=== PATIENT | male | born 1945 | race Caucasian/White ===

== ENCOUNTER 2016-05-26 13:53 | Emergency (ER) | payer OTHER ==
--- NOTE | 2016-05-26 13:57 | EDPHY ---
H & P Time Seen by Provider: 05/26/16 13:56 HPI/ROS: CHIEF COMPLAINT: Nausea and vomiting for 1 week HISTORY OF PRESENT ILLNESS: 71-year-old man has a history of depression anxiety on Depakote and also has ulcerative colitis. Please add worse nausea with vomiting every day for the last week decreased oral intake. Associated with some epigastric pain and noticed a lump just below his sternum today. Pain does not radiate. Symptoms worse with oral intake. Not associated with diarrhea although he is having bowel movements. No fever or chills. No hematemesis or coffee-ground emesis. REVIEW OF SYSTEMS: Eye: no change in vision ENT: no sore throat Cardiac: no chest pain or syncope Pulmonary: no cough or SOB Abdomen: HPI Musculoskeletal: no back pain Skin: no rash Neuro: no headache Constitutional: no fever : no urinary symptoms A comprehensive 10 point review of systems is otherwise negative aside from elements mentioned in the history of present illness. PAST MEDICAL HISTORY: History and physical dated 06/14/2010 personally reviewed by myself. Includes DVT and ulcerative colitis. GERD. Deu-qubrdcy-aqeycjtuj diabetes and depression. Social history: Former smoker, drinks wine every day. General Appearance: Alert and conversant, cooperative. Eyes: No scleral icterus. ENT, Mouth: Slightly dry mucous membranes Respiratory: Normal respiratory effort, breath sounds equal, lungs are clear to auscultation. Cardiovascular: Regular rate and rhythm. Gastrointestinal: Abdomen is soft and he only has some mild epigastric tenderness but no rebound or guarding and normal bowel sounds. Not distended. Neurological: Alert and oriented x3. Normally conversant. Face symmetric, normal movement and sensation in all extremities. Skin: Warm and dry, no rashes. Musculoskeletal: No peripheral edema and no joint swelling. Psychiatric: Not agitated. Emergency Department course/MDM: Zofran 4 mg IV and normal saline 1 L. Labs to include lipase LFTs and chemistry. CT abdomen and pelvis. Patient is on Remicade. 1509: CT abdomen and pelvis viewed independently by myself for acute process. 1531: Re-examined patient and discussed results. No further vomiting. Stable for discharge and encouraged to call his psychiatrist tomorrow to refill his Depakote because he has run out Constitutional: Initial Vital Signs Temperature (C) 36.3 C 05/26/16 13:57 Heart Rate 87 05/26/16 13:57 Respiratory Rate 16 05/26/16 13:57 Blood Pressure 142/75 H 05/26/16 13:57 O2 Sat (%) 94 05/26/16 13:57 O2 Delivery Mode Room Air Allergies/Adverse Reactions: No Known Drug Allergies Allergy (Unknown, Verified 06/15/10 01:03) Unknown Home Medications: Medication Instructions Recorded Ondansetron Odt [Zofran Odt] 4 mg PO Q4PRN #6 tab 05/26/16 Medical Decision Making - Diagnostics Imaging: CT per Debbi has bilateral renal stones but no obstruction, prostate enlargement, bladder diverticulum, at 1529; no reason for epigastric pain or vomiting. Differential Diagnosis: Differential diagnosis considered for nausea and vomiting including but not limited to gastroenteritis, gastritis, appendicitis, and medication side effect. - Data Points Laboratory Results: Laboratory Results 05/26/16 14:09 05/26/16 14:09 05/26/16 05/26/16 05/26/16 14:09 14:09 14:08 WBC 7.41 10^3/uL 10^3/uL (3.80-9.50) RBC 5.61 10^6/uL 10^6/uL (4.40-6.38) Hgb 17.4 g/dL g/dL (13.7-17.5) POC Hgb 17.7 gm/dL H gm/dL (14.5-17.3) Hct 50.1 % % (40.0-51.0) POC Hct 52 % H % (42.8-50.6) MCV 89.3 fL fL (81.5-99.8) MCH 31.0 pg pg (27.9-34.1) MCHC 34.7 g/dL g/dL (32.4-36.7) RDW 12.6 % % (11.5-15.2) Plt Count 307 10^3/uL 10^3/uL (150-400) MPV 9.5 fL fL (8.7-11.7) Neut % (Auto) 47.7 % % (39.3-74.2) Lymph % (Auto) 40.2 % % (15.0-45.0) [place] % (Auto) 8.2 % % (4.5-13.0) Eos % (Auto) 2.7 % % (0.6-7.6) Baso % (Auto) 0.8 % % (0.3-1.7) Nucleat RBC Rel Count 0.0 % % (0.0-0.2) Absolute Neuts (auto) 3.53 10^3/uL 10^3/uL (1.70-6.50) Absolute Lymphs (auto) 2.98 10^3/uL 10^3/uL (1.00-3.00) Absolute Monos (auto) 0.61 10^3/uL 10^3/uL (0.30-0.80) Absolute Eos (auto) 0.20 10^3/uL 10^3/uL (0.03-0.40) Absolute Basos (auto) 0.06 10^3/uL 10^3/uL (0.02-0.10) Absolute Nucleated RBC 0.00 10^3/uL 10^3/uL (0-0.01) Immature Gran % 0.4 % % (0.0-1.1) Immature Gran # 0.03 10^3/uL 10^3/uL (0.00-0.10) POC Sodium 144 mEq/L mEq/L (134-144) Sodium 142 mEq/L mEq/L (134-144) POC Potassium 3.7 mEq/L mEq/L (3.3-5.0) Potassium 4.2 mEq/L mEq/L (3.5-5.2) POC Chloride 104 mEq/L mEq/L (96-108) Chloride 105 mEq/L mEq/L (97-110) Carbon Dioxide 25 mEq/l mEq/l (22-31) Anion Gap 12 mEq/L mEq/L (8-16) POC BUN 28 mg/dL H mg/dL (7-23) BUN 26 mg/dL H mg/dL (7-23) Creatinine 0.9 mg/dL mg/dL (0.7-1.3) POC Creatinine 0.9 mg/dL mg/dL (0.8-1.5) Estimated GFR > 60 Glucose 102 mg/dL H mg/dL (70-100) POC Glucose 107 mg/dL H mg/dL (70-100) Calcium 10.2 mg/dL mg/dL (8.5-10.4) Total Bilirubin 0.8 mg/dL mg/dL (0.1-1.4) Conjugated Bilirubin 0.3 mg/dL mg/dL (0.0-0.5) Unconjugated Bilirubin 0.5 mg/dL mg/dL (0.0-1.1) AST 24 IU/L IU/L (17-59) ALT 35 IU/L IU/L (21-72) Alkaline Phosphatase 64 IU/L IU/L (38-126) Total Protein 7.8 g/dL g/dL (6.3-8.2) Albumin 4.5 g/dL g/dL (3.5-5.0) Lipase 56.0 IU/L IU/L (23-300) Valproic Acid < 10.0 mcg/mL L mcg/mL (50.0-150.0) Medications Given: Discontinued Medications Sodium Chloride (Ns) 1,000 mls @ 0 mls/hr IV ONCE ONE PRN Reason: Wide Open Stop: 05/26/16 14:11 Last Admin: 05/26/16 15:10 Dose: 1,000 mls Ondansetron HCl (Zofran) 4 mg IVP EDNOW ONE Stop: 05/26/16 14:11 Last Admin: 05/26/16 15:10 Dose: 4 mg Point of Care Test Results: 05/26/16 14:08 POC Sodium 144 POC Potassium 3.7 POC Chloride 104 POC BUN 28 H POC Creatinine 0.9 POC Glucose 107 H Departure - Departure Clinical Impression: Nausea & vomiting Qualifiers: Vomiting type: unspecified Vomiting Intractability: non-intractable Qualified Code(s): R11.2 - Nausea with vomiting, unspecified Condition: Good Instructions: Acute Nausea and Vomiting (ED) Referrals: Marco Cintron MD [Primary Care Provider] - As per Instructions Prescriptions: Ondansetron Odt [Zofran Odt] 4 mg PO Q4PRN #6 tab
[2016-05-26 14:00] VITALS: TEMP 97.3
[2016-05-26] MEDS ORDERED: NS 1,000 ML IV ONE (14:10)
[2016-05-26] MEDS ORDERED: ONDANSETRON 4 MG/2 ML VIAL IVP ONE (14:10)
[2016-05-26] MEDS ORDERED: IOPAMIDOL (ISOVUE-300) 100 ML BTL IV ONE (14:31)
[2016-05-26 14:34] LABS: % IMMATURE GRANULYOCYTES 0.4 % (0.0-1.1); ABSOLUTE IMMATURE GRANULOCYTES 0.03 10^3/uL (0.00-0.10); ADD DIFF? NO; ADD MORPH? NO; ADD SCAN? NO; ATYPICAL LYMPHOCYTE FLAG 0 (0-99); FRAGMENT RBC FLAG 10 (0-99); HEMATOCRIT 50.1 % (40.0-51.0); HEMOGLOBIN 17.4 g/dL (13.7-17.5); LEFT SHIFT FLG 0 (0-99); LIPEMIA HEMOLYSIS FLAG 90 (0-99); MEAN CELL HEMOGLOBIN CONCENTR. 34.7 g/dL (32.4-36.7); MEAN CELL VOLUME 89.3 fL (81.5-99.8); MEAN PLATELET VOLUME 9.5 fL (8.7-11.7); PLATELET CLUMPS FLAG 10 (0-99); PLATELET COUNT 307 10^3/uL (150-400); RED BLOOD CELL COUNT 5.61 10^6/uL (4.40-6.38); RED CELL DISTRIBUTION WIDTH 12.6 % (11.5-15.2)
[2016-05-26 14:43] LABS: ALANINE AMINOTRANSFERASE 35 IU/L (21-72); ALBUMIN 4.5 g/dL (3.5-5.0); ALKALINE PHOSPHATASE 64 IU/L (38-126); ANION GAP 12 mEq/L (8-16); ASPARTATE AMINOTRANSFERASE 24 IU/L (17-59); BILIRUBIN,TOTAL 0.8 mg/dL (0.1-1.4); BILIRUBIN-CONJUGATED 0.3 mg/dL (0.0-0.5); BILIRUBIN-UNCONJUGATED 0.5 mg/dL (0.0-1.1); CALCIUM 10.2 mg/dL (8.5-10.4); CARBON DIOXIDE 25 mEq/l (22-31); CHLORIDE 105 mEq/L (97-110); CREATININE 0.9 mg/dL (0.7-1.3); GLOMERULAR FILTRATION RATE > 60; GLUCOSE 102 mg/dL (70-100); POTASSIUM 4.2 mEq/L (3.5-5.2); SODIUM 142 mEq/L (134-144); TOTAL PROTEIN 7.8 g/dL (6.3-8.2)
[2016-05-26 15:51] VITALS: BP 115/82; PULSE 79; RESP 18; O2SAT 95
== END 2016-05-26 15:51 | disposition home or self-care (01) ==
DX: R11.2 Nausea with vomiting, unspecified (principal); E11.9 Type 2 diabetes mellitus without complications; Z87.891 Personal history of nicotine dependence
CPT/HCPCS: 82947-QW; 96374; J2405; Q9967

== ENCOUNTER 2017-05-27 18:21 | Inpatient (IN) | payer OTHER ==
--- NOTE | 2017-05-27 18:30 | EDPHY ---
H & P Stated Complaint: LARGE MEAL THURS/BEGAN VOMITING AFTER AND HASN'T STOPPED Time Seen by Provider: 05/27/17 18:30 - Personal History Current Tetanus/Diphtheria Vaccine: No - Medical/Surgical History Hx Asthma: No Hx Chronic Respiratory Disease: No Hx Diabetes: Yes Hx Cardiac Disease: No Hx Renal Disease: No Hx Cirrhosis: No Hx Alcoholism: No Hx HIV/AIDS: No Hx Splenectomy or Spleen Trauma: No Other PMH: depression, DM, high chol, HTN - Social History Smoking Status: Former smoker Constitutional: Initial Vital Signs Temperature (C) 36.6 C 05/27/17 18:26 Heart Rate 87 05/27/17 18:26 Respiratory Rate 16 05/27/17 18:26 Blood Pressure 152/101 H 05/27/17 18:26 O2 Sat (%) 98 05/27/17 18:26 O2 Delivery Mode Room Air Allergies/Adverse Reactions: No Known Drug Allergies Allergy (Unknown, Verified 05/27/17 18:23) Unknown Home Medications: Medication Instructions Recorded Abilify 05/27/17 Ambien 05/27/17 Depakote 05/27/17 Lexapro 05/27/17 Lipitor 05/27/17 Metformin 1000 mg 05/27/17 Medical Decision Making - Diagnostics Imaging Results: Imaging Impressions Abdomen/Pelvis CT 05/27/17 18:49 Impression: 1. Left ureteral stone with obstruction described above 2. Chronic bladder outlet obstruction secondary to enlarged prostate gland. 3. Constipation. No evidence for bowel obstruction. Final concordant results discussed with Dr. Tomlin at 7:25 PM. General information for patients regarding this examination can be found at [email or web address]. If you have questions or comments about this report, please contact me at (hospital) or [phone] (cell). Imaging: Discussed imaging studies w/ clutch operator Radiologist, I viewed and interpreted images myself ED Course/Re-evaluation: CHIEF COMPLAINT: Vomiting, no bowel movement. HISTORY OF PRESENT ILLNESS: The patient is a 72 y/o male arriving with his complaining of persistent vomiting since eating dinner on , 3 days ago. His medical history includes diabetes and hypertension. night he ate dry pork tenderloin "in big bites." He has vomited every time he tries to eat since then and is only keeping down small sips of water. He has associated pain when vomiting and general abdomen discomfort at rest. He has not had a bowel movement or flatulence since symptoms started. No fever, recent trauma, or recent illness. No history of abdominal surgeries or prior bowel obstructions. REVIEW OF SYSTEMS: A 10 point review of systems was performed and is negative with the exception of the elements mentioned in the history of present illness. PHYSICAL EXAM: HR, BP, O2 Sat, RR. Temp noted General Appearance: Alert, well hydrated, appropriate, and non-toxic appearing. Head: Atraumatic without scalp tenderness or obvious injury Eyes: Pupils equal, round, reactive to light and accommodation, EOMI, no trauma , no injection. Nose: Atraumatic, no rhinorrhea, clear. Throat: Mucus membranes dry. Neck: Supple, nontender, no lymphadenopathy. Respiratory: No retractions, no distress, no wheezes, and no accessory muscle use. Lungs are clear to auscultation bilaterally. Cardiovascular: Regular rate and rhythm, no murmurs, rubs, or gallops. Good capillary refill all extremities. Gastrointestinal: Abdomen is soft, mild diffuse tenderness, mild distension, no masses, no rebound, no guarding, no peritoneal signs. Musculoskeletal: Normal active ROM of all extremities, atraumatic. Neurological: Alert, appropriate, and interactive. The patient has non-focal cranial nerves, motor, sensory, and cerebellar exam. Skin: No rashes, good turgor, no nodules on palpation. Past medical history: Depression, diabetes, hypercholesterolemia, hypertension Past surgical history: No abdominal surgeries Family history: Noncontributory Social history: at bedside. Retired. Lives in [place]. DIAGNOSTICS/PROCEDURES/CRITICAL CARE TIME: Abdominal CT: bladder outlet obstruction secondary to prostatic hyperplasia, obstructing left uretal stone, bladder diverticulum, constipation DIFFERENTIAL DIAGNOSIS: The differential diagnosis for the patient's nausea and vomiting included but was not limited to bowel obstruction, gastroenteritis , appendicitis, cholecystitis, hernias, testicular torsion, gastritis, urinary tract infection, and medication side effect. MEDICAL DECISION MAKING: This is a 72 y/o male who presents with a 3-day history of persistent vomiting and no bowel movement with associated abdominal discomfort. He has mild diffuse abdominal tenderness. Presentation concerning for bowel obstruction. Plan for IV , ISTAT, and abdominal CT. 2L IV NS and 4mg IV Zofran administered. ISTAT shows creatinine of 1.6, CT will need to be without contrast. CT shows bladder outlet obstruction, obstructing left uretal stone, bladder diverticulum, constipation. Patient will require admission. Urology paged. Reassessed patient and discussed work up and recommendation for admission. He agrees to admission. 1941: Consulted with Dr. Hou, urology. She will consult during admission. Spoke with hospitalist service. Dr. Batista accepts admission. - Data Points Laboratory Results: Laboratory Results 05/27/17 18:35 05/27/17 18:35 05/27/1718 05/27/17 18:35 18:35 18:35 WBC 15.64 10^3/uL H 10^3/uL (3.80-9.50) RBC 5.19 10^6/uL 10^6/uL (4.40-6.38) Hgb 16.2 g/dL g/dL (13.7-17.5) POC Hgb 16.7 gm/dL gm/dL (13.7-17.5) Hct 47.4 % % (40.0-51.0) POC Hct 49 % % (40-51) MCV 91.3 fL fL (81.5-99.8) MCH 31.2 pg pg (27.9-34.1) MCHC 34.2 g/dL g/dL (32.4-36.7) RDW 11.9 % % (11.5-15.2) Plt Count 221 10^3/uL 10^3/uL (150-400) MPV 10.8 fL fL (8.7-11.7) Neut % (Auto) 76.8 % H % (39.3-74.2) Lymph % (Auto) 13.7 % L % (15.0-45.0) [place] % (Auto) 8.7 % % (4.5-13.0) Eos % (Auto) 0.1 % L % (0.6-7.6) Baso % (Auto) 0.3 % % (0.3-1.7) Nucleat RBC Rel Count 0.0 % % (0.0-0.2) Absolute Neuts (auto) 12.02 10^3/uL H 10^3/uL (1.70-6.50) Absolute Lymphs (auto) 2.14 10^3/uL 10^3/uL (1.00-3.00) Absolute Monos (auto) 1.36 10^3/uL H 10^3/uL (0.30-0.80) Absolute Eos (auto) 0.01 10^3/uL L 10^3/uL (0.03-0.40) Absolute Basos (auto) 0.05 10^3/uL 10^3/uL (0.02-0.10) Absolute Nucleated RBC 0.00 10^3/uL 10^3/uL (0-0.01) Immature Gran % 0.4 % % (0.0-1.1) Immature Gran # 0.06 10^3/uL 10^3/uL (0.00-0.10) POC Sodium 139 mEq/L mEq/L (135-145) Sodium 139 mEq/L mEq/L (135-145) POC Potassium 4.2 mEq/L mEq/L (3.3-5.0) Potassium 4.7 mEq/L mEq/L (3.5-5.2) POC Chloride 100 mEq/L mEq/L (97-110) Chloride 100 mEq/L mEq/L (97-110) Carbon Dioxide 23 mEq/l mEq/l (22-31) Anion Gap 16 mEq/L mEq/L (8-16) POC BUN 28 mg/dL H mg/dL (7-23) BUN 27 mg/dL H mg/dL (7-23) Creatinine 1.6 mg/dL H mg/dL (0.7-1.3) POC Creatinine 1.6 mg/dL H mg/dL (0.7-1.3) Estimated GFR 42 Glucose 93 mg/dL mg/dL (70-100) POC Glucose 98 mg/dL mg/dL (70-100) Calcium 10.5 mg/dL H mg/dL (8.5-10.4) Total Bilirubin 0.8 mg/dL mg/dL (0.1-1.4) Conjugated Bilirubin 0.3 mg/dL mg/dL (0.0-0.5) Unconjugated Bilirubin 0.5 mg/dL mg/dL (0.0-1.1) AST 23 IU/L IU/L (17-59) ALT 22 IU/L IU/L (21-72) Alkaline Phosphatase 65 IU/L IU/L (38-126) Total Protein 7.7 g/dL g/dL (6.3-8.2) Albumin 4.5 g/dL g/dL (3.5-5.0) Lipase 21 IU/L L IU/L (23-300) Medications Given: Discontinued Medications Sodium Chloride (Ns) 1,000 mls @ 0 mls/hr IV EDNOW ONE; Wide Open PRN Reason: Protocol Stop: 05/27/17 18:36 Last Admin: 05/27/17 19:05 Dose: 1,000 mls Sodium Chloride (Ns) 1,000 mls @ 0 mls/hr IV EDNOW ONE; Wide Open PRN Reason: Protocol Stop: 05/27/17 18:36 Last Admin: 05/27/17 19:05 Dose: 1,000 mls Ondansetron HCl (Zofran) 4 mg IVP EDNOW ONE Stop: 05/27/17 18:36 Last Admin: 05/27/17 19:05 Dose: 4 mg Point of Care Test Results: 05/27/17 18:35 POC Sodium 139 POC Potassium 4.2 POC Chloride 100 POC BUN 28 H POC Creatinine 1.6 H POC Glucose 98 Departure - Departure Disposition: [facility] Inpatient Acute Clinical Impression: Urinary retention, Bladder outlet obstruction, Renal insufficiency, Dehydration , Bladder diverticulum Hydronephrosis Qualifiers: Hydronephrosis type: with renal calculous obstruction Qualified Code(s): N13.2 - Hydronephrosis with renal and ureteral calculous obstruction Vomiting Qualifiers: Vomiting type: unspecified Vomiting Intractability: intractable Nausea presence : with nausea Qualified Code(s): R11.2 - Nausea with vomiting, unspecified Condition: Fair Referrals: Marco Cintron MD [Primary Care Provider] - As per Instructions Report Scribed for: Daniel Tomlin Report Scribed by: Jayne Oates Date of Report: 05/27/17 Time of Report: 19:12
[2017-05-27] MEDS ORDERED: NS 1,000 ML IV ONE ×2 (18:35)
[2017-05-27] MEDS ORDERED: ONDANSETRON 4 MG/2 ML VIAL IVP ONE (18:35)
[2017-05-27 19:01] LABS: PLATELET COUNT 221 10^3/uL (150-400)
[2017-05-27] MEDS ORDERED: HYDROCODONE/APAP 5/325 TAB PO PRN (19:59)
[2017-05-27] MEDS ORDERED: PROMETHAZINE HCL 25 MG TAB PO PRN (19:59)
[2017-05-27] MEDS ORDERED: PROMETHAZINE HCL 25 MG/ML INJ IVP PRN (19:59)
[2017-05-27] MEDS ORDERED: NS W/ 20 KCl/L 1,000 ML IV SCH (20:00)
[2017-05-27] MEDS ORDERED: D50W 25 GM/50 ML VIAL IVP PRN (20:10)
[2017-05-27] MEDS ORDERED: LACTULOSE 20 GM/30 ML UDCUP PO PRN (20:15)
[2017-05-27] MEDS ORDERED: MAGNESIUM HYDROXIDE 30 ML UDCUP PO PRN (20:15)
[2017-05-27] MEDS ORDERED: BISACODYL 10 MG SUPP PR PRN (20:15)
[2017-05-27] MEDS ORDERED: POLYETHYLENE GLYCOL 3350 17 GM PKT PO PRN (20:15)
--- NOTE | 2017-05-27 20:24 | PDGENHP ---
History and Physical History and Physical: Chief complaint: Intractable nausea and vomiting and abdominal pain History of present illness: The patient is a 72-year-old male with a past medical history of diabetes, depression, DVT who developed intractable nausea, vomiting, and periumbilical abdominal pain a few hours after he ate a meal 2 days ago. Pain is characterized as sharp and does not radiate. Severity is rated 7/10 at its worst. Pain is better with sleeping. It is worse after he eats. Associated symptoms include fevers and chills. Patient has also been constipated for the last 4-5 days. In the ED, he was noted to have a kidney stone in left ureter and post obstructive bladder. Past medical history: Diabetes mellitus, bipolar depression, DVT Past surgical history: Dental implants Medications: Please see medication reconciliation form for medicine dosages. Patient takes Abilify, Wellbutrin, Lexapro, Depakote, Lipitor, metformin, Ambien. Allergies: NKA Social history: Patient is and lives with his . 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 He consumes about 1 glass of wine daily. He does not smoke or do drugs. Family history: No known family medical history of kidney, bladder, prostate a bones. Review of systems: 10 point review of systems was conducted and is negative except per HPI Physical exam: Vitals: Reviewed General: The patient is an elderly male who is alert and in no acute distress. HEENT: normocephalic, extraocular movements intact, conjunctivae clear, no lesions on face. Nares and oral mucosa pink and moist. Neck: trachea midline, no visible masses, no external lesions. CV: +S1/S2, RRR, no MRG. Resp: unlabored, CTAB no RRW. Abd: soft and nondistended. Bowel sounds are present. Nontender to palpation throughout. Musculoskeletal: Normal gait. Neuro: cranial nerves II XII grossly intact. Intact gross motor and sensory function. Psych: appropriate mood/affect. Skin: no pallor. Heme/lymph: No peripheral edema. : No suprapubic or costovertebral tenderness. Labs: WBC 15.64, HGB 16.2, platelets 221, sodium 130 and potassium 4.2, chloride 100, BUN 28, creatinine 1.6, glucose 98, calcium 10.5, liver function tests within normal limits. Other Data: CT of the abdomen/pelvis - Left ureteral stone-5.6 x 4.4 x 7.6 mm obstructing left ureter. Chronic bladder outlet obstruction secondary to enlarged prostate. Stable larger right bladder diverticulum containing smaller stones. Constipation. Impression and plan: Acute nephrolithiasis, obstructive Intractable nausea and vomiting, secondary to above Chronic bladder outlet obstruction 2/2 BPH Bladder diverticulum Acute kidney injury, likely post obstructive Diabetes mellitus type 2 Bipolar depression History of DVT Insomnia Constipation -Discussed case with the ED physician-who consulted Urologist mobile application development lead. -Urology recommendations appreciated. -IV fluids. -Flomax. -Check UA to rule out UTI, with urine culture if indicated. -P.r.n. Antiemetics and analgesics. Avoiding Zofran for QT prolonging interactions with Lexapro. -Bowel regimen -SSI/hypoglycemia protocol/poc glucose checks. -Resume home meds once dosages are known- per Pharmacist Med Rec. -Code status-full code -VTE prophylaxis-Lovenox. -Patient is being admitted for observation.
[2017-05-27] MEDS: SENNOSIDES/DOCUSATE SODIUM TAB PO SCH (22:47)
[2017-05-27] MEDS: ZOLPIDEM TARTRATE 5 MG TAB PO PRN (22:48)
[2017-05-27] MEDS: NS 1,000 ML IV SCH (22:48)
[2017-05-28 04:50] LABS: PLATELET COUNT 167 10^3/uL (150-400)
[2017-05-28] MEDS: NS 1,000 ML IV SCH ×3 (05:54→20:00)
[2017-05-28] MEDS: INSULIN LISPRO 100 UNIT/ML SC SCH ×3 (08:11→17:51)
[2017-05-28] MEDS: TAMSULOSIN HCL 0.4 MG CAP PO SCH (08:12)
[2017-05-28] MEDS: SENNOSIDES/DOCUSATE SODIUM TAB PO SCH ×2 (08:12→22:29)
[2017-05-28] MEDS: ENOXAPARIN 40 MG/0.4 ML SYR SC SCH (08:13)
[2017-05-28] MEDS: ACETAMINOPHEN 325 MG TAB PO PRN (10:20)
--- NOTE | 2017-05-28 14:37 | ASMTCMCOM ---
CM Note CM Note Notes: Pt admitted for observation due to kidney stone. Date Signed: 05/28/2017 02:37 PM Electronically Signed By:Aliyah Waite LCSW
[2017-05-28] MEDS ORDERED: OPIUM/BELLADONNA ALKALO SUPP PR ONE (14:41)
[2017-05-28] MEDS ORDERED: IOPAMIDOL (ISOVUE-M 300) 15 ML VIAL ONE (14:42)
[2017-05-28] MEDS ORDERED: MIDAZOLAM 2 MG/2 ML VIAL ONE (15:04)
[2017-05-28] MEDS ORDERED: ceFAZolin 2 GM/SWFI 20 ML SYR IVP ONE (15:04)
--- NOTE | 2017-05-28 15:06 | PDANEPAE ---
ANE History of Present Illness renal stones ANE Past Medical History - Cardiovascular History Hx Hypertension: Yes - Pulmonary History Hx Oxygen in Use at Home: No Hx Sleep Apnea: No Sleep Apnea Screening Result - Last Documented: Positive - Endocrine History Hx Diabetes: Yes ANE Review of Systems Review of Systems: ANE Patient History - Allergies Allergies/Adverse Reactions: No Known Drug Allergies Allergy (Unknown, Verified 05/27/17 18:23) Unknown - Home Medications Home Medications: ARIPiprazole [Abilify 2 mg (*)] 2 mg PO DAILY 05/27/17 [Last Taken 05/27/17] Atorvastatin Calcium [Lipitor 20 mg (*)] 20 mg PO HS 05/27/17 [Last Taken ] Divalproex ER [Depakote ER 250 MG (*)] 750 mg PO HS 05/27/17 [Last Taken ] Escitalopram Oxalate [Lexapro] 5 mg PO DAILY 05/27/17 [Last Taken 05/27/17] Fexofenadine HCl [Cleo Allergy] 180 mg PO DAILY 05/27/17 [Last Taken 05/27/17 ] Lisinopril [Zestril 5 mg (*)] 5 mg PO HS 05/27/17 [Last Taken 05/26/17] Remicade Inj 100 mg (*) Q56D 05/27/17 [Last Taken 05/11/17] Zolpidem Tartrate [Ambien 5MG (*)] 10 mg PO HS 05/27/17 [Last Taken 05/26/17] buPROPion XL [Wellbutrin 150mg XL] 300 mg PO DAILY 05/27/17 [Last Taken 05/27/17 ] metFORMIN HCL [Metformin HCl ER] 500 mg PO BIDMEAL 05/27/17 [Last Taken 08:00] - NPO status NPO Since - Liquids (Date): 05/27/17 NPO Since - Liquids (Time): 23:55 NPO Since - Solids (Date): 05/27/17 NPO Since - Solids (Time): 23:55 - Smoking Hx Smoking Status: Former smoker ANE Labs/Vital Signs - Labs Result Diagrams: 05/28/17 04:22 05/28/17 04:22 - Vital Signs Blood Pressure: 157/81 Heart Rate: 60 Respiratory Rate: 16 O2 Sat (%): 91 Height: 180.34 cm Weight: 70.3 kg ANE Physical Exam - Airway Neck exam: FROM Mallampati Score: Class 2 Mouth exam: normal dental/mouth exam - Pulmonary Pulmonary: no respiratory distress - Cardiovascular Cardiovascular: regular rate and rhythym - ASA Status ASA Status: II ANE Anesthesia Plan Anesthesia Plan: GA w LMA
[2017-05-28] MEDS ORDERED: ceFAZolin 2 GM/SWFI 2 GM/20 ML SYR IVP ONE (15:07)
[2017-05-28] MEDS ORDERED: PROPOFOL 200 MG/20 ML VIAL ONE ×2 (15:10)
[2017-05-28] MEDS ORDERED: fentaNYL 100 MCG/2 ML INJ ONE (15:10)
--- NOTE | 2017-05-28 15:29 | PDCONSULT ---
General Machine Operator Note: RFC: left obs ureteral stone, nonobs renal stones History of present illness: The patient is a 72-year-old male with GI sx the past few days, constipation, and CT in ER showed left obs ureteral stone and nonobs renal stones. I personally reviewed this CT - left obs ureteral stone, nonobs renal stones, perinepheric stranding, large bladder diverticulum, large prostate. He has had left flank pain for several days. Also weak urinary stream. Past medical history: Diabetes mellitus, bipolar depression, DVT Past surgical history: Dental implants Medications: Please see medication reconciliation form for medicine dosages. Patient takes Abilify, Wellbutrin, Lexapro, Depakote, Lipitor, metformin, Ambien. Allergies: NKA Social history: Patient is and lives with his . 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 He consumes about 1 glass of wine daily. He does not smoke or do drugs. Family history: No known family medical history of kidney, bladder, prostate a bones. Review of systems: 10 point review of systems was conducted and is negative except per HPI PE AFVSS Gen NAD A&O CV regular Lungs Normal effort Abd soft Ext Warm CVA Left tenderness WBC 15>9 Cr 1.5 UA - WBC 15-20, Neg nit, tr Leuks. A/P Left ureteral stone, nonobs stones, UA concerning for infection, as is his CT with perinepheric stranding. I feel best approach is to place a stent today and let his kidney decompress and if there is infection above the stone, that will drain as well. Stent placement may be challenging given his distorted anatomy w large prostate and bladder diverticulum. I explained that if stent placement is not possible, he would need PCNT and possibly nephroureteral stent, then we would go back to the OR at a later date to treat his stones, but this way, he will be draining and decompressed on the left side. I explained that if there is infection above the stone, treatment today requires use of high pressure fluids and infection could be pushed into the blood stream. He understands rationale for only placing stent today. We will then return in 1-2 weeks to treat all his left sided stones. I recommend abx postop for a few days. Discussed risks including bleeding, infection, need for a stent, need for a vu, discomfort, injury to surrounding tissues such as bladder, urethra, ureter. He understood and agrees to proceed.
[2017-05-28] MEDS ORDERED: MIDAZOLAM 2 MG/2 ML VIAL IVP ONE (15:52)
[2017-05-28] MEDS ORDERED: ONDANSETRON 4 MG/2 ML VIAL IVP PRN (15:53)
[2017-05-28] MEDS ORDERED: NALOXONE HCL 0.4 MG/ML INJ IVP PRN (15:53)
[2017-05-28] MEDS ORDERED: HYDROmorphONE/DILAUDID 1 MG/ML INJ IVP PRN (15:53)
[2017-05-28] MEDS ORDERED: fentaNYL 100 MCG/2 ML INJ IVP PRN (15:53)
[2017-05-28] MEDS ORDERED: PROMETHAZINE HCL 25 MG/ML INJ IVP PRN (15:53)
[2017-05-28] MEDS ORDERED: METHYLENE BLUE 0.5% 50 MG/10 ML AMP ONE (15:56)
[2017-05-28] MEDS ORDERED: LIDOCAINE 2% JELLY 20 ML (UROJECT) ONE (16:15)
[2017-05-28] MEDS ORDERED: DEXAMETHASONE 4 MG/ML VIAL ONE (16:16)
[2017-05-28] MEDS ORDERED: ONDANSETRON 4 MG/2 ML VIAL ONE (16:16)
--- NOTE | 2017-05-28 16:28 | POSTOPPROG ---
Post Op Note Date of Operation: 05/28/17 Surgeon: Kym Hou Alarm Field Technician: None Anesthesia: LMA Pre-op Diagnosis: left ureteral stone, left renal stones, distorted bladder due to dic Post-op Diagnosis: same Indication: left obs stone, left renal stones Procedure: cystoscopy, left retrograde pyelogram, left stent 6F x multivar Findings: distorted bladder anatomy due to large tic, Left UO difficult to find Inf/Abcess present in the surg proc area at time of surgery?: No Depth: Organ Space () EBL: Minimal Complications: None, patient tolerated procedure well Drains: Other (vu)
--- NOTE | 2017-05-28 16:30 | POSTANESTH ---
Post Anesthetic Evaluation Cardiovascular Status: Normal, Stable Respiratory Status: Normal, Stable Level of Consciousness/Mental Status: Can Participate in Eval Pain Control: Adequate, Prn Tx Ordered Nausea/Vomiting Control: Adequate, Prn Tx Ordered Complications Possibly Related to Anesthesia: None Noted
--- NOTE | 2017-05-28 17:25 | HOSPPROG ---
Hospitalist Progress Note Assessment/Plan: I visited this patient in the postop recovery room where he was awake and talkative. I also reviewed his case in detail today with Dr. Randhawa. She informed me that she did place a stent but there is still some stone and he will have to come back to the OR for complete removal. In addition she feels that he will need a Goode catheter to be able to drain his bladder due to his BPH and prostate swelling at this time. His procedure worse were uncomplicated did DIAGNOSES: -obstructing ureteral stone with hydronephrosis; improvement in pain now with stent in place -upper pole urinary tract infection proximal to his kidney stone -BPH with significant prostatic swelling -acute renal insufficiency likely due to obstruction -diabetes mellitus -bipolar depression -history of DVT of leg PLANS: -continue current supportive care -begin antibiotics with Levaquin -Flomax -when she revived back to his room with the floor will begin a trial of a regular diet and trial of ambulation to see if he is able to hydrate and feed himself and walk safely -Goode catheter in place with leg bag and begin teaching the patient how to use leg bag; Goode to stay in place until he sees Dr. Dianna enamorado in clinic next week -Follow sugars very closely -recheck renal function -discharged home once he is taking p.o. Safely, ambulating safely, able to deal with the leg bag, and no other issues interfering with safe discharge; given his age his renal function and other issues suspect this will likely be tomorrow since it is 5:30 p.m. 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: Currently in sinus rhythm on monitor in PACU Exam: alert oriented skin warm dry color ok resps not labored lungs clear BSs heart regular abd soft nondistended nontender, bowel sounds present limbs warm, no edema Goode is in proper position draining yellow urine iv site ok White blood cell count down to 9000 Creatinine better at 1.5 but still elevated Objective: Vital Signs Temp Pulse Resp BP Pulse Ox 36.6 C 70 14 145/71 H 92 05/28/17 17:08 05/28/17 17:08 05/28/17 17:08 05/28/17 17:08 05/28/17 17:08 Laboratory Results 05/28/17 04:22 05/28/17 04:22 05/27/17 05/28/17 05/29/17 06:59 06:59 06:59 Intake Total 3100 725 Output Total 250 760 Balance 2850 -35 - Time Spent With Patient Time Spent with Patient: greater than 35 minutes Time Spent with Patient: Greater than 35 minutes spent on this patients care, greater than 50% of time spent counseling, educating, and coordinating care regarding the above mentioned plan. ICD10 Worksheet Patient Problems: Problems Problem Status Onset Bladder diverticulum Acute Bladder outlet obstruction Acute Dehydration Acute Hydronephrosis Acute Renal insufficiency Acute Urinary retention Acute Vomiting Acute
--- NOTE | 2017-05-28 17:51 | GOP ---
[f rep st] OPERATIVE REPORT DATE OF OPERATION: 05/28/2017 SURGEON: Kym Hou MD MARKETING ADMINISTRATIVE ASSISTANT: None. ANESTHESIA: LMA. PREOPERATIVE DIAGNOSIS: Left obstructing ureteral stone, left renal stones, and distorted bladder du e to large diverticulum and large prostate. POSTOPERATIVE DIAGNOSIS: Left obstructing ureteral stone, left renal stones, and distorted bladder d ue to large diverticulum and large prostate. PROCEDURE PERFORMED: Cystoscopy, left retrograde pyelogram, left ureteral stent placement, 6-Lithuanian by multivariable. FINDINGS: Distorted bladder anatomy due to a large tic and median lobe of prostate, left UO was very difficult to find due to this distorted anatomy. ESTIMATED BLOOD LOSS: Minimal. INDICATIONS: Symptomatic left obstructing stone and left renal stones. DESCRIPTION OF PROCEDURE: Patient was taken back to the operating room, placed on the operating tabl e in the supine position. General anesthesia induced without complication. Time-out performed and C ore measures satisfied including placement of Chioma Hugger, SCDs, and verification that 2 g of Ancef a ntibiotic had been administered. He was brought to the end of the table, placed in dorsal lithotomy position. All pressure points padded. Genitalia draped and prepped in the standard surgical fashion with Betadine. A rigid cystoscope easily cannulated the urethral meatus and advanced atraumatically into the bladder. The prostatic urethra was approximately 2 cm with a high-riding bladder neck and a large central zone tissue. I did butler cystoscopy, and there were no lesions or tumors in the bladde r, but a very large right lateral diverticulum. The right ureteral orifice was easy to find. The le ft ureteral orifice was very difficult. It was near the central zone ridge of his prostate and diffi cult to see. It took me about 20 minutes to find the left ureteral orifice, but eventually I was abl e to find it, cannulated it with a wire, and a 5-Lithuanian open-ended catheter performed a retrograde py elogram. The ureter also appeared very tortuous, but the calices were sharp. There was some minimal dilation of the renal pelvis. At this point then, I replaced my Glidewire and then placed a 6-Frenc h by multivariable stent without difficulty. There was a nice curl in the bladder and a curl in the kidney. Due to his enlarged prostate and there being some irritation from rubbing the scope against the prostatic urethra, I elected to leave him with an 18-Lithuanian coude Goode catheter; so this was kehinde elizabeth after lidocaine jelly was instilled per urethra. I placed an 18-Lithuanian Goode, inflated the ballo on with 15 mL of sterile water, and then placed a belladonna opium suppository. I did feel quite a b it of stool, hard, rock-like, pebble-like in his rectum and did disimpact him as well. I did a digit al rectal exam, and his prostate was probably 30 g, smooth, symmetrical, no nodules. The patient ailin erated the procedure well, awoke from anesthesia without any difficulties, and was transferred to PAC U in good condition. We will let his ureter passively dilate as well as the left collecting system d rain well over the next week and plan for revisiting the left ureteral stone and renal stones at a la ter date. COMPLICATIONS: None. DRAINS: A Goode. INDICATIONS FOR PROCEDURE: The patient is a pleasant 72-year-old gentleman who has been having abdom inal discomfort for several days and then left flank pain. A CT scan without contrast demonstrated a left obstructing ureteral stone as well as nonobstructing renal stones on the left, also a large pro state and a large bladder with a very large diverticulum. He had perinephric stranding around this l eft kidney as well in addition to some white blood cells in his urine. I felt that, given his distor jeny anatomy as well as the possibility of a urinary tract infection, the best course of action would be to place a ureteral stent at this time and left his left collecting system decompress and any infe ction drain. The patient understood this rationale for just placing a left stent, and he agreed to p marilee. I did go over the risks which included bleeding, infection, need for a stent, need for a Fol ey, discomfort, pain, injury to the urethra, bladder, ureter, and surrounding tissues. I also discus sed that I may not be able to place a left stent given the anatomy as well as given the obstructing s tone and then, at that point, he would need to have a percutaneous nephrostomy tube placed by [facility]. He understood and still agreed to proceed. /[id number]/MODL
[2017-05-28] MEDS: ESCITALOPRAM OXALATE 10 MG TAB PO SCH (17:52)
[2017-05-28] MEDS: buPROPion XL 150 MG TAB PO SCH (17:53)
[2017-05-28] MEDS: ARIPiprazole 2 MG TAB PO SCH (17:53)
--- NOTE | 2017-05-28 18:06 | PDMN ---
Medical Necessity Medical necessity: C/M review: Patient meets INPT criteria under [facility] M-320 Renal colic and kidney stones: Acute obstructing left ureteral stone with hydronephrosis, upper pole urinary tract infection proximal to his kidney stone , BPH with significant prostatic swelling, acute renal insufficiency likely due to obstruction requiring 05/28/2017 surgery - left ureteral stent placement, still some stone left (patient will need to go back to OR at a later time for complete removal), Goode catheter placement with leg bag, planned 05/29/2017 recheck renal function labs ongoing IV fluids, resume diet, postop checks, patient teaching how to use leg bag, hold lisinopril and metformin due to acute renal failure, supportive care, comorbid age, diabetes, bipolar depression, history of DVT of leg. MD anticipates > 2 MN LOS for ongoing med nec for eval and TX of above.
[2017-05-28] MEDS ORDERED: ATORVASTATIN CALCIUM 20 MG TAB PO SCH (21:00)
[2017-05-28] MEDS ORDERED: DIVALPROEX ER 250 MG TAB PO SCH (21:00)
[2017-05-28] MEDS: ZOLPIDEM TARTRATE 5 MG TAB PO PRN (22:30)
[2017-05-29] MEDS: ACETAMINOPHEN 325 MG TAB PO PRN (02:18)
[2017-05-29 04:43] LABS: PLATELET COUNT 165 10^3/uL (150-400)
[2017-05-29 07:55] VITALS: RESP 16
[2017-05-29] MEDS: buPROPion XL 150 MG TAB PO SCH (09:49)
[2017-05-29] MEDS: ARIPiprazole 2 MG TAB PO SCH (09:51)
[2017-05-29] MEDS: TAMSULOSIN HCL 0.4 MG CAP PO SCH (09:51)
[2017-05-29] MEDS: ESCITALOPRAM OXALATE 10 MG TAB PO SCH (09:51)
[2017-05-29] MEDS: SENNOSIDES/DOCUSATE SODIUM TAB PO SCH (09:52)
[2017-05-29] MEDS: ENOXAPARIN 40 MG/0.4 ML SYR SC SCH (09:53)
[2017-05-29] MEDS ORDERED: NON-FORMULARY NEW DRUG (Metformin Hcl [Metformin Hcl Er] 500 MG) PO SCH (10:00)
[2017-05-29] MEDS: INSULIN LISPRO 100 UNIT/ML SC SCH ×2 (10:11→12:03)
[2017-05-29] MEDS: metFORMIN SR 500 MG TAB PO SCH ×2 (10:40→16:55)
[2017-05-29 11:21] VITALS: BP 135/67; PULSE 58; TEMP 98.3; O2SAT 95
--- NOTE | 2017-05-29 15:53 | PDDCSUM ---
Discharge Summary Discharge Summary: DISCHARGE DIAGNOSES: -acute obstructing ureteral kidney stone with hydronephrosis and suspected urinary tract infection proximal to the obstruction -postoperative hematuria -benign prostatic hypertrophy, acute urinary retention requiring Goode catheter -acute renal insufficiency likely caused by ureteral obstruction, relieved by placement of ureteral stent with good resolution -history of DVT, no evidence of thromboembolic disease here -diabetes mellitus with reasonably good blood sugar control here CONSULTANTS: Dr. Hou PROCEDURES: Cysto ureteroscopy with laser treatment of kidney stones, extraction of kidney stones, placement of ureteral stent HOSPITAL COURSE SUMMARY: This patient came into the hospital complaining of abnormal flank pain radiating to the testis and was found to have an obstructing ureteral stone that was 7 cm largest diameter with hydronephrosis. He was treated with hydration and pain medications. Was clear he was not a passed the stone. He went to the operating room or had cysto ureteroscopy with stone extraction after laser treatment and placement of a stent. This was all well tolerated without complication. However was noticed does have significant BPH and a lot of prostatic edema and was felt that he was not going to be emptying his bladder well. Therefore a Goode catheter is electively left in place at this time to be removed in the clinic on follow-up. The patient is trained in the use of the Goode catheter and leg bag by our nursing staff. There was some purulent material from above the stone so the patient started on some Levaquin at this time as well as some Flomax. At this point the patient is ambulating well without difficulty, eating well and drinking fluids, has stable vital signs, no fever, understands his instructions for follow-up well. He is stable for discharge to home. PENDING TEST RESULTS: Kidney stone analysis MEDICATION CHANGES: Addition of Levaquin 750 mg for 5 days Addition of Flomax 0.4 mg daily FOLLOW-UP PLAN: Follow-up with Dr. Hou in 1 week at which time he will have his Goode catheter removed, plans for further surgical removal of stent and stones Greater than 35 minutes bedside and care coordination time today
--- NOTE | 2017-05-29 16:19 | ASDISCHSUM ---
Discharge Information Plan Status:Home with No Needs Medically Cleared to Leave:05/28/2017 Discharge Date:05/28/2017 CM D/C Disposition:Home, Routine, Self-Care ADT D/C Disposition:Home, Routine, Self-Care Projected Discharge Date:05/28/2017 Transportation at D/C:Family Discharge Delay Reason: Follow-Up Date:05/28/2017 Discharge Slot: Final Diagnosis: Placement Information Patient Contact Information Contact Name:TAMIKO Relationship: Address:[address] [place] [address] City:[facility] Phone: [facility]/Zip Code:[place] [address] Email: Financial Information Financial Class:HMO and PPO Plans Primary Plan Desc:[facility] Primary Plan Number:[id number] Secondary Plan Desc:MEDICARE INPATIENT Secondary Plan Number:[id number] Assessment Information [facility] CM Progress Note CM Note CM Note Notes: Pt admitted for observation due to kidney stone. Date Signed: 05/28/2017 02:37 PM Electronically Signed By:Aliyah Waite LCSW LACE LACE Length of stay for Answers: 1 day current admission Acuity / Level of Answers: Yes Care: Did the patient have an inpatient admission? Comorbidities - select Answers: Diabetes (uncontrolled or all that apply controlled) # of Emergency department Answers: 1-2 visits in the last 6 months Social determinants Answers: Mental health diagnosis (anxiety, depression, pers onality disorders, etc.) Score: 9 Date Signed: 05/29/2017 04:16 PM Electronically Signed By:THAO Damon Case Management Discharge Plan Note Case Management Discharge Discharge Order Complete? Answers: Yes Patient to Obtain Answers: via Family Medications Transportation Arranged Answers: Family/Friends Discharge Comments Notes: Pt is discharging home today with no CM needs. S/p stent placement. Will follow up with urologist. Date Signed: 05/29/2017 04:18 PM Electronically Signed By:THAO Damon Intervention Information
== END 2017-05-29 18:03 | disposition home or self-care (01) | DRG 694 ==
LOC: F1N 20:50 → OBSVTOIN 05-28 17:43
PROVIDERS: ADMIT Internal Medicine; ATTEND Internal Medicine
DX: N13.2 Hydronephrosis with renal and ureteral calculous obstruction (principal); N40.1 Benign prostatic hyperplasia with lower urinary tract symptoms; N32.3 Diverticulum of bladder; K59.00 Constipation, unspecified; N17.9 Acute kidney failure, unspecified; N39.0 Urinary tract infection, site not specified; R11.2 Nausea with vomiting, unspecified; E11.9 Type 2 diabetes mellitus without complications; I10 Essential (primary) hypertension; F31.9 Bipolar disorder, unspecified; E78.00 Pure hypercholesterolemia, unspecified; Z87.891 Personal history of nicotine dependence; Z86.718 Personal history of other venous thrombosis and embolism; Z79.84 Long term (current) use of oral hypoglycemic drugs
CPT/HCPCS: 82947-QW; 96374; C1758; C1769; C2625; G0378; J0690; J1100; J1650; J1815; J2250; J2270; J2405; J2704; J3010; Q9967; Q9968

== ENCOUNTER → 2017-06-29 | Outpatient (CLI) | payer OTHER | LOC: FIMAGING 16:09 | PROVIDERS: ATTEND Urology | DX: N20.0 Calculus of kidney (principal); N28.1 Cyst of kidney, acquired; N32.3 Diverticulum of bladder ==

== ENCOUNTER → 2017-10-02 | Outpatient (CLI) | payer OTHER | LOC: BMCIMAGING 12:32 | PROVIDERS: ATTEND Urology | DX: N20.0 Calculus of kidney (principal); N13.30 Unspecified hydronephrosis; N32.3 Diverticulum of bladder ==

== ENCOUNTER → 2017-10-16 | Outpatient (CLI) | payer OTHER ==
[~2017-10-16] MED LIST: IOPAMIDOL (ISOVUE-300) 100 ML BTL ONE
== END ==
LOC: FIMAGING 14:38
PROVIDERS: ATTEND Urology
DX: N32.3 Diverticulum of bladder (principal); N40.0 Benign prostatic hyperplasia without lower urinary tract symptoms; N20.0 Calculus of kidney
CPT/HCPCS: Q9967

== ENCOUNTER → 2017-10-22 | Outpatient (CLI) | payer OTHER ==
[~2017-10-22] MED LIST changes: +GADOBUTROL 10 ML VIAL IVP ONE; -IOPAMIDOL (ISOVUE-300) 100 ML BTL ONE
== END ==
LOC: FIMAGING 09:21
PROVIDERS: ATTEND Urology
DX: N40.0 Benign prostatic hyperplasia without lower urinary tract symptoms (principal); N32.3 Diverticulum of bladder
CPT/HCPCS: A9585